=== PATIENT | male | born 1945 | race Caucasian/White ===

== ENCOUNTER 2022-02-24 16:27 | Emergency (ER) | payer OTHER ==
[2022-02-24 16:33] VITALS: BP 179/83; PULSE 89; TEMP 98.5; BMI 24.3
== END 2022-02-24 18:56 | disposition home or self-care (01) ==
LOC: JERFT 16:27
DX: S09.90XA Unspecified injury of head, initial encounter (principal); W01.198A Fall on same level from slipping, tripping and stumbling with subsequent striking against other object, initial encounter
CPT/HCPCS: 70450-TC; 72125-TC; 73590-TC-LT-FY; 99285-25

== ENCOUNTER 2022-06-09 11:11 | Inpatient (IN) | payer OTHER ==
[2022-06-09 11:22] VITALS: BMI 26.6
[2022-06-09] MEDS ORDERED: ACETAMINOPHEN INJECTION 100 ML IVPB ONE (12:14)
[2022-06-09 12:23] LABS: HEMATOCRIT 44.1 % (35.4-49); HEMOGLOBIN 15.1 GM/dL (11.7-16.9); MCH 31.5 pg (25.7-33.7); MCHC 34.3 g/dl (32.0-35.9); MEAN CELL VOLUME 91.9 fl (80-96); MEAN PLT VOLUME 8.6 fl (7.5-11.1); PLATELET COUNT 97 10^3/uL (134-434); RDW 13.6 % (11.9-15.9); WHITE BLOOD COUNT 5.6 K/mm3 (4.0-10.0)
[2022-06-09] MEDS ORDERED: SODIUM CHLORIDE 0.9% 500 ML INFUS.BAG IV ONE ×2 (12:24→13:06)
[2022-06-09] MEDS ORDERED: ACETAMINOPHEN 1000 MG/100 ML BAG IVPB ONE (12:26)
[2022-06-09 12:36] LABS: ACTIVATED PTT 35.7 SECONDS (25.2-36.5); INR 1.26 (0.83-1.09); PROTHROMBIN TIME (PATIENT) 14.5 SEC (9.7-13.0)
[2022-06-09 12:42] LABS: CHLORIDE 95 mmol/L (98-107); SODIUM 134 mmol/L (136-145)
[2022-06-09 12:44] LABS: CALCIUM 8.3 mg/dL (8.5-10.1)
[2022-06-09 12:45] LABS: ALBUMIN 3.5 g/dl (3.4-5.0); ANION GAP 14 MMOL/L (8-16); BLOOD UREA NITROGEN 24.5 mg/dL (7-18); CO2 24 mmol/L (21-32)
[2022-06-09 12:47] LABS: BILIRUBIN,DIRECT 0.3 mg/dL (0.0-0.2); GLUCOSE,RANDOM 126 mg/dL (74-106)
[2022-06-09 12:48] LABS: CREATININE 1.5 mg/dL (0.55-1.3); SGOT/AST 37 U/L (15-37)
[2022-06-09 12:49] LABS: LDH 187 U/L (87-246); TOT PROT 6.8 g/dl (6.4-8.2)
[2022-06-09 12:50] LABS: BILIRUBIN,TOTAL 0.7 mg/dL (0.2-1); SGPT/ALT 39 U/L (13-61)
[2022-06-09 12:51] LABS: ALK PHOS 66 U/L (45-117)
[2022-06-09 13:05] LABS: ANISOCYTOSIS 0; HELMET CELLS 0; HOWELL-JOLLY BODIES 0; MACROCYTOSIS 0; OVALOCYTE 0; ROULEAU 0; SICKELED CELLS 0; TARGET CELLS 0; TEAR DROP CELLS 0; TOXIC GRANULATION 0
[2022-06-09] MEDS ORDERED: DEXAMETHASONE SOD PHOSPHATE 20 MG/5 ML VIAL IVPB ONE (15:45)
[2022-06-09] MEDS ORDERED: DEXAMETHASONE SOD PHOSPHATE 10 MG/1 ML VIAL ONE (16:03)
[2022-06-09] MEDS ORDERED: ACETAMINOPHEN 325 MG TABLET (FP) PO PRN (16:37)
[2022-06-09] MEDS ORDERED: ENOXAPARIN NA (PORCINE) 40 MG/0.4 ML DISP.SYRIN SQ SCH (16:45)
[2022-06-09] MEDS ORDERED: REMDESIVIR 200 MG in SODIUM CHLORIDE 250 ML IVPB ONE (17:00)
[2022-06-09 18:12] LABS: EPI CELLS 19 /uL (0-25.1); HYALINE CASTS 5 /uL (0-3.1); PH,URINE 5.5 (5.0-8.0); URINE APPEARANCE CLEAR; URINE BACTERIA 9 /uL (0-1359); URINE BILIRUBIN NEGATIVE (NEGATIVE); URINE COLOR YELLOW; URINE GLUCOSE (UA) NEGATIVE (NEGATIVE); URINE KETONE 1+ (NEGATIVE); URINE LEUK ESTERASE NEGATIVE (NEGATIVE); URINE NITRITE NEGATIVE (NEGATIVE); URINE PROTEIN 1+ (NEGATIVE); URINE RBC 72 /uL (0-23.9); URINE UROBILINOGEN 0.2 mg/dL (0.2-1.0); URINE WBC 33 /uL (0-25.8)
[2022-06-09] MEDS ORDERED: CEFTRIAXONE 1 GM in DEXTROSE 5%-WATER - 50 ML IVPB SCH (18:15)
[2022-06-09] MEDS: INSULIN SLIDING SCALE (NOVOLOG) 1 VIAL SQ SCH (19:17)
[2022-06-09] MEDS ORDERED: CEFTRIAXONE 1 GM/50 ML BAG ONE (20:12)
[2022-06-09] MEDS: CEFTRIAXONE 1 GM in DEXTROSE 5%-WATER - 50 ML IVPB SCH (23:47)
[2022-06-09 23:54] LABS: PHOSPHOROUS 3.9 mg/dL (2.5-4.9)
[2022-06-10] MEDS: SODIUM CHLORIDE 1,000 ML IV SCH ×3 (01:24→12:25)
[2022-06-10] MEDS: INSULIN SLIDING SCALE (NOVOLOG) 1 VIAL SQ SCH ×3 (06:07→18:16)
[2022-06-10 09:15] LABS: HEMATOCRIT 41.4 % (35.4-49); HEMOGLOBIN 14.5 GM/dL (11.7-16.9); MCH 31.8 pg (25.7-33.7); MCHC 35.1 g/dl (32.0-35.9); MEAN CELL VOLUME 90.7 fl (80-96); MEAN PLT VOLUME 8.2 fl (7.5-11.1); PLATELET COUNT 98 10^3/uL (134-434); RBC 4.57 M/mm3 (4.00-5.60); RDW 13.6 % (11.9-15.9)
[2022-06-10 09:41] LABS: CALCIUM 7.7 mg/dL (8.5-10.1)
[2022-06-10 09:42] LABS: BLOOD UREA NITROGEN 21.5 mg/dL (7-18)
[2022-06-10 09:46] LABS: BILIRUBIN,TOTAL 0.6 mg/dL (0.2-1); TOT PROT 5.9 g/dl (6.4-8.2)
[2022-06-10] MEDS ORDERED: REMDESIVIR 200 MG in SODIUM CHLORIDE 250 ML IVPB ONE (10:27)
[2022-06-10 10:35] LABS: ALBUMIN 2.7 g/dl (3.4-5.0)
[2022-06-10] MEDS: DEXAMETHASONE SOD PHOSPHATE 10 MG/1 ML VIAL IVPUSH SCH (11:05)
[2022-06-10] MEDS: CEFTRIAXONE 1 GM in DEXTROSE 5%-WATER - 50 ML IVPB SCH (11:06)
[2022-06-10 12:58] LABS: ANISOCYTOSIS 2+; MACROCYTOSIS 0; OVALOCYTE 1+
[2022-06-10] MEDS: SODIUM CHLORIDE 0.45% 1,000 ML IV SCH (17:00)
[2022-06-10] MEDS: REMDESIVIR 100 MG in SODIUM CHLORIDE 250 ML IVPB SCH (18:16)
[2022-06-10] MEDS: HEPARIN NA (PORCINE) 5,000 UNITS/ML 1ML VIAL SQ SCH (22:19)
[2022-06-11] MEDS: INSULIN SLIDING SCALE (NOVOLOG) 1 VIAL SQ SCH ×3 (06:15→17:05)
[2022-06-11] MEDS: HEPARIN NA (PORCINE) 5,000 UNITS/ML 1ML VIAL SQ SCH ×3 (06:15→22:44)
[2022-06-11 08:54] LABS: HEMATOCRIT 40.3 % (35.4-49); HEMOGLOBIN 13.8 GM/dL (11.7-16.9); MCH 31.4 pg (25.7-33.7); MCHC 34.2 g/dl (32.0-35.9); MEAN CELL VOLUME 91.8 fl (80-96); MEAN PLT VOLUME 8.3 fl (7.5-11.1); PLATELET COUNT 106 10^3/uL (134-434); RBC 4.39 M/mm3 (4.00-5.60); RDW 13.8 % (11.9-15.9); WHITE BLOOD COUNT 7.3 K/mm3 (4.0-10.0)
[2022-06-11 09:17] LABS: CALCIUM 8.1 mg/dL (8.5-10.1)
[2022-06-11 09:18] LABS: ALBUMIN 2.7 g/dl (3.4-5.0); BLOOD UREA NITROGEN 21.8 mg/dL (7-18); MAGNESIUM 2.2 mg/dL (1.8-2.4)
[2022-06-11 09:21] LABS: CREATININE 0.9 mg/dL (0.55-1.3)
[2022-06-11 09:22] LABS: BILIRUBIN,TOTAL 0.7 mg/dL (0.2-1); TOT PROT 5.8 g/dl (6.4-8.2)
[2022-06-11] MEDS: CEFTRIAXONE 1 GM in DEXTROSE 5%-WATER - 50 ML IVPB SCH (11:08)
[2022-06-11] MEDS: DEXAMETHASONE SOD PHOSPHATE 10 MG/1 ML VIAL IVPUSH SCH (11:08)
[2022-06-11] MEDS: SODIUM CHLORIDE 0.45% 1,000 ML IV SCH ×2 (11:12→14:00)
[2022-06-11] MEDS: REMDESIVIR 100 MG in SODIUM CHLORIDE 250 ML IVPB SCH (17:05)
[2022-06-11] MEDS ORDERED: LABETALOL HCL 5 MG/1 ML (100MG/20 ML VIAL) IVPUSH ONE (22:02)
[2022-06-12] MEDS: HEPARIN NA (PORCINE) 5,000 UNITS/ML 1ML VIAL SQ SCH ×3 (06:06→21:01)
[2022-06-12] MEDS: INSULIN SLIDING SCALE (NOVOLOG) 1 VIAL SQ SCH ×3 (06:06→16:47)
[2022-06-12 08:09] LABS: CALCIUM 8.1 mg/dL (8.5-10.1)
[2022-06-12 08:10] LABS: BLOOD UREA NITROGEN 24.2 mg/dL (7-18)
[2022-06-12 08:13] LABS: CREATININE 0.8 mg/dL (0.55-1.3)
[2022-06-12] MEDS: LISINOPRIL 10 MG TABLET PO SCH (10:11)
[2022-06-12] MEDS: REMDESIVIR 100 MG in SODIUM CHLORIDE 250 ML IVPB SCH (17:07)
[2022-06-13] MEDS: HEPARIN NA (PORCINE) 5,000 UNITS/ML 1ML VIAL SQ SCH ×3 (06:08→21:09)
[2022-06-13] MEDS: INSULIN SLIDING SCALE (NOVOLOG) 1 VIAL SQ SCH ×3 (06:14→17:38)
[2022-06-13] MEDS: LISINOPRIL 10 MG TABLET PO SCH (10:34)
[2022-06-14] MEDS: HEPARIN NA (PORCINE) 5,000 UNITS/ML 1ML VIAL SQ SCH ×3 (05:44→21:41)
[2022-06-14] MEDS: INSULIN SLIDING SCALE (NOVOLOG) 1 VIAL SQ SCH ×3 (06:52→17:21)
[2022-06-14 10:10] LABS: HEMATOCRIT 42.4 % (35.4-49); HEMOGLOBIN 14.6 GM/dL (11.7-16.9); MCH 31.5 pg (25.7-33.7); MCHC 34.5 g/dl (32.0-35.9); MEAN CELL VOLUME 91.5 fl (80-96); MEAN PLT VOLUME 9.3 fl (7.5-11.1); PLATELET COUNT 160 10^3/uL (134-434); RBC 4.63 M/mm3 (4.00-5.60); RDW 13.7 % (11.9-15.9); WHITE BLOOD COUNT 7.6 K/mm3 (4.0-10.0)
[2022-06-14] MEDS: LISINOPRIL 10 MG TABLET PO SCH (10:24)
[2022-06-14 10:39] LABS: BLOOD UREA NITROGEN 20.4 mg/dL (7-18); CALCIUM 8.4 mg/dL (8.5-10.1)
[2022-06-14 10:40] LABS: ALBUMIN 2.8 g/dl (3.4-5.0)
[2022-06-14 10:43] LABS: CREATININE 0.7 mg/dL (0.55-1.3)
[2022-06-14 10:45] LABS: BILIRUBIN,TOTAL 1.4 mg/dL (0.2-1); TOT PROT 5.8 g/dl (6.4-8.2)
[2022-06-15] MEDS: HEPARIN NA (PORCINE) 5,000 UNITS/ML 1ML VIAL SQ SCH ×2 (06:19→14:16)
[2022-06-15] MEDS: INSULIN SLIDING SCALE (NOVOLOG) 1 VIAL SQ SCH ×3 (06:19→17:01)
[2022-06-15 06:32] VITALS: RESP 18
[2022-06-15] MEDS: LISINOPRIL 10 MG TABLET PO SCH (10:07)
[2022-06-15 14:52] LABS: BILIRUBIN,DIRECT 0.3 mg/dL (0.0-0.2)
[2022-06-15 14:55] LABS: BILIRUBIN,TOTAL 0.7 mg/dL (0.2-1)
[2022-06-15 20:13] VITALS: BP 130/60; PULSE 54; TEMP 98.5
== END 2022-06-15 20:30 | disposition home or self-care (01) | DRG 177 ==
LOC: JER 11:11 → JERBED 15:38 → J4S 23:18
PROVIDERS: ADMIT Internal Medicine; ATTEND Internal Medicine
PROC: XW033E5 Introduction of Remdesivir Anti-infective into Peripheral Vein, Percutaneous Approach, New Technology Group 5 (ICD-10-PCS; principal; 2022-06-09)
PROC: 3E0333Z Introduction of Anti-inflammatory into Peripheral Vein, Percutaneous Approach (ICD-10-PCS; 2022-06-09)
DX: U07.1 COVID-19 (principal); G93.41 Metabolic encephalopathy; J12.82 Pneumonia due to coronavirus disease 2019; J96.01 Acute respiratory failure with hypoxia; N17.9 Acute kidney failure, unspecified; N39.0 Urinary tract infection, site not specified; I10 Essential (primary) hypertension; E78.5 Hyperlipidemia, unspecified; E86.0 Dehydration; R00.1 Bradycardia, unspecified; E11.9 Type 2 diabetes mellitus without complications; D69.6 Thrombocytopenia, unspecified; Z86.73 Personal history of transient ischemic attack (TIA), and cerebral infarction without residual deficits
CPT/HCPCS: 36415; 70450-TC; 71045-TC-FY; 80048; 80053; 81003; 82247; 82248; 82550; 82553; 82570; 82728; 82962; 83605; 83615; 83735; 84100; 84300; 84484; 85025; 85027; 85379; 85610; 85730; 86140; 87040; 87086; 93005; 93010; 94761; 97116-GP; 99285-25; C9399; C9803-CS; J1100; J1644; U0003; U0005

== ENCOUNTER 2022-09-27 05:35 | Day surgery (SDC) | payer OTHER ==
[2022-09-26 12:14] VITALS: BMI 23.6
[2022-09-27] MEDS ORDERED: PROPOFOL 20 ML ONE (12:07)
[2022-09-27] MEDS ORDERED: BUPIVACAINE HCL/PF 0.25% (2.5MG/ML) 10 ML VIAL ONE (12:14)
[2022-09-27] MEDS ORDERED: FENTANYL CITRATE/PF 50 MCG/ML VIAL ONE ×3 (12:42→16:20)
[2022-09-27] MEDS ORDERED: ceFAZolin SODIUM 1 GM VIAL IVPB ONE (12:45)
[2022-09-27] MEDS ORDERED: ceFAZolin SODIUM 1 GM VIAL ONE (12:59)
[2022-09-27] MEDS ORDERED: ONDANSETRON 4 MG/2 ML VIAL ONE (13:07)
[2022-09-27] MEDS ORDERED: DEXAMETHASONE SOD PHOSPHATE 4 MG/1 ML VIAL ONE (13:07)
[2022-09-27] MEDS ORDERED: ROCURONIUM BROMIDE 50 MG/5 ML SYRINGE ONE (13:18)
[2022-09-27] MEDS ORDERED: BUPIVACAINE HCL/PF 0.25% (2.5MG/ML) 10 ML VIAL IJ ONE (13:18)
[2022-09-27] MEDS ORDERED: GLYCOPYRROLATE 0.2 MG/1 ML VIAL ONE (13:22)
[2022-09-27] MEDS ORDERED: ACETAMINOPHEN INJECTION 100 ML IVPB ONE (15:13)
[2022-09-27] MEDS ORDERED: LABETALOL HCL 5 MG/1 ML (100MG/20 ML VIAL) IVPUSH ONE ×2 (15:30→16:21)
[2022-09-27] MEDS ORDERED: ONDANSETRON 4 MG/2 ML VIAL IVPUSH PRN (15:32)
[2022-09-27] MEDS ORDERED: LACTATED RINGERS SOLUTION 1,000 ML IV SCH (15:45)
[2022-09-27 15:56] VITALS: TEMP 97.5
[2022-09-27 19:34] VITALS: BP 170/76; PULSE 72; RESP 20
== END 2022-09-27 19:45 | disposition home or self-care (01) ==
LOC: JASU-SURG 05:35
PROVIDERS: ATTEND Surgery
PROC: 0YU64JZ Supplement Left Inguinal Region with Synthetic Substitute, Percutaneous Endoscopic Approach (ICD-10-PCS; principal; 2022-09-27 13:00)
DX: K40.90 Unilateral inguinal hernia, without obstruction or gangrene, not specified as recurrent (principal)
CPT/HCPCS: 49650; S2900; 82962; 86850; 86900; 86901; 94760; C1781

== ENCOUNTER 2025-05-14 23:37 | Inpatient (IN) | payer OTHER ==
[2025-05-15 00:06] VITALS: BMI 24.3
[2025-05-15 00:47] LABS: MCHC 32.6 g/dl (32.3-36.5); MEAN CELL VOLUME 93.7 fl (79.0-92.2); MEAN PLT VOLUME 9.9 fl (9.4-12.4); RDW 13.2 % (12.2-16.6)
[2025-05-15 00:51] LABS: EPI CELLS 4 /uL (0-25.1); HYALINE CASTS 0 /uL (0-3.1); URINE APPEARANCE CLEAR; URINE BACTERIA 3 /uL (0-1359); URINE BILIRUBIN NEGATIVE (NEGATIVE); URINE COLOR YELLOW; URINE GLUCOSE (UA) 1+ (NEGATIVE); URINE KETONE 1+ (NEGATIVE); URINE LEUK ESTERASE NEGATIVE (NEGATIVE); URINE NITRITE NEGATIVE (NEGATIVE); URINE PROTEIN TRACE (NEGATIVE); URINE RBC 565 /uL (0-23.9); URINE UROBILINOGEN 1.0 mg/dL (0.2-1.0); URINE WBC 8 /uL (0-25.8)
[2025-05-15 00:56] LABS: INR 1.06 (0.83-1.09); PROTHROMBIN TIME (PATIENT) 11.7 SEC (9.7-13.0)
[2025-05-15 00:59] LABS: ACTIVATED PTT 28.0 SECONDS (25.2-36.5)
[2025-05-15 01:16] LABS: CO2 25.0 mmol/L (21-32); GLUCOSE,RANDOM 183.0 mg/dL (74-106)
[2025-05-15 01:19] LABS: CREATININE 1.0 mg/dL (0.55-1.3); SGOT/AST 16.0 U/L (15-37); SGPT/ALT 16.0 U/L (13-61)
[2025-05-15 01:21] LABS: TOT PROT 6.6 g/dl (6.4-8.2)
[2025-05-15 01:22] LABS: ALK PHOS 104.0 U/L (45-117)
[2025-05-15] MEDS ORDERED: SENNOSIDES 8.6MG TABLET (FP) PO ONE (05:00)
[2025-05-15] MEDS: SENNOSIDES 8.6MG TABLET (FP) PO ONE (05:05)
[2025-05-15] MEDS: SODIUM PHOSPHATE/NA BIPHOS 133 ML ENEMA RC ONE (05:05)
[2025-05-15] MEDS: CEFTRIAXONE 1 GM in DEXTROSE 5%-WATER - 50 ML IVPB SCH (10:54)
[2025-05-15] MEDS: LISINOPRIL 20 MG TABLET PO SCH (10:55)
[2025-05-15 11:44] LABS: CO2 27.0 mmol/L (21-32); GLUCOSE,RANDOM 178.0 mg/dL (74-106)
[2025-05-15 11:47] LABS: CREATININE 0.8 mg/dL (0.55-1.3)
[2025-05-15] MEDS: AZITHROMYCIN IVPB 500 MG/250 ML BAG IVPB SCH (12:54)
[2025-05-15] MEDS: HEPARIN NA (PORCINE) 5,000 UNITS/ML 1ML VIAL SQ SCH (14:54)
[2025-05-15] MEDS: INSULIN ASPART SLIDING SCALE (NOVOLOG) 1 VIAL SQ SCH (18:29)
[2025-05-15] MEDS: DOCUSATE SODIUM 100 MG CAPSULE (FP) PO SCH (21:57)
[2025-05-15] MEDS: ATORVASTATIN CA 10 MG TABLET (FP) PO SCH (21:57)
[2025-05-16 08:45] LABS: ABSOLUTE IMMATURE GRANULOCYTES 0.05 x10^3/uL (0.0-0.031); BASOPHILS # 0.04 x10^3/uL (0.01-0.08); EOSINOPHIL % 2.9 % (0.8-7.0); EOSINOPHILS # 0.20 x10^3/uL (0.04-0.54); MCHC 32.3 g/dl (32.3-36.5); MEAN CELL VOLUME 93.9 fl (79.0-92.2); MEAN PLT VOLUME 10.6 fl (9.4-12.4); MONOCYTE # 0.66 x10^3/uL (0.30-0.82); MONOCYTE % 9.4 % (5.3-12.2); RDW 13.0 % (12.2-16.6)
[2025-05-16 09:26] LABS: IRON SERUM 58.0 ug/dL (50-175)
[2025-05-16 09:43] LABS: CO2 27.0 mmol/L (21-32); GLUCOSE,RANDOM 144.0 mg/dL (74-106)
[2025-05-16 09:46] LABS: CREATININE 0.8 mg/dL (0.55-1.3)
[2025-05-16] MEDS: ACETAMINOPHEN 325 MG TABLET (FP) PO PRN (11:03)
[2025-05-16] MEDS: DOCUSATE NA 100 MG/10 ML UNIT-DOSE CUPS PO ONE (21:58)
[2025-05-17 12:03] LABS: ABSOLUTE IMMATURE GRANULOCYTES 0.03 x10^3/uL (0.0-0.031); BASOPHILS # 0.03 x10^3/uL (0.01-0.08); EOSINOPHIL % 2.0 % (0.8-7.0); EOSINOPHILS # 0.13 x10^3/uL (0.04-0.54); IMMATURE PLATELET FRACTION # 14.60 x10^3/uL; MCHC 32.3 g/dl (32.3-36.5); MEAN CELL VOLUME 94.0 fl (79.0-92.2); MEAN PLT VOLUME 11.9 fl (9.4-12.4); MONOCYTE # 0.60 x10^3/uL (0.30-0.82); MONOCYTE % 9.3 % (5.3-12.2); RDW 12.7 % (12.2-16.6)
[2025-05-17 13:00] LABS: CO2 29.0 mmol/L (21-32); GLUCOSE,RANDOM 151.0 mg/dL (74-106)
[2025-05-17 13:02] LABS: CREATININE 0.9 mg/dL (0.55-1.3)
[2025-05-17 13:03] LABS: SGOT/AST 19.0 U/L (15-37); SGPT/ALT 24.0 U/L (13-61)
[2025-05-17 13:04] LABS: TOT PROT 6.4 g/dl (6.4-8.2)
[2025-05-17 13:06] LABS: ALK PHOS 115.0 U/L (45-117)
[2025-05-17 16:53] LABS: URINE COLOR YELLOW
[2025-05-17 16:54] LABS: URINE APPEARANCE CLEAR; URINE BILIRUBIN NEGATIVE (NEGATIVE); URINE GLUCOSE (UA) 100 (NEGATIVE); URINE KETONE 40 mg/dl (NEGATIVE); URINE NITRITE NEGATIVE (NEGATIVE); URINE PROTEIN 30 (NEGATIVE); URINE UROBILINOGEN 1.0 mg/dL (0.2-1.0)
[2025-05-17 16:55] LABS: URINE LEUK ESTERASE NEGATIVE (NEGATIVE)
[2025-05-18 10:25] LABS: MCHC 32.3 g/dl (32.3-36.5); MEAN CELL VOLUME 93.9 fl (79.0-92.2); MEAN PLT VOLUME 10.3 fl (9.4-12.4); RDW 12.8 % (12.2-16.6)
[2025-05-18 11:05] LABS: CO2 30.0 mmol/L (21-32); GLUCOSE,RANDOM 154.0 mg/dL (74-106)
[2025-05-18 11:07] LABS: SGPT/ALT 32.0 U/L (13-61)
[2025-05-18 11:08] LABS: CREATININE 0.9 mg/dL (0.55-1.3); SGOT/AST 20.0 U/L (15-37)
[2025-05-18 11:09] LABS: TOT PROT 6.3 g/dl (6.4-8.2)
[2025-05-18 11:10] LABS: ALK PHOS 122.0 U/L (45-117)
[2025-05-19 04:23] VITALS: RESP 18
[2025-05-19 14:14] VITALS: BP 150/71; PULSE 56; TEMP 97.9
== END 2025-05-19 15:26 | DRG 193 ==
LOC: JER 23:37 → JERBED 05-15 02:21 → J6S 05-15 05:50
PROVIDERS: ADMIT Internal Medicine; ATTEND Internal Medicine
DX: J18.9 Pneumonia, unspecified organism (principal); G93.41 Metabolic encephalopathy; F03.918 Unspecified dementia, unspecified severity, with other behavioral disturbance; K59.00 Constipation, unspecified; R62.7 Adult failure to thrive; I10 Essential (primary) hypertension; E78.5 Hyperlipidemia, unspecified; E11.9 Type 2 diabetes mellitus without complications; R29.6 Repeated falls; R31.0 Gross hematuria
CPT/HCPCS: 36415; 70450-TC; 71045-TC-FY; 71250-TC; 74018-TC-FY; 74178-TC; 80048; 80053; 81003; 82550; 82553; 82607; 82728; 82746; 82962; 83036; 83540; 83550; 83735; 84100; 84484; 85025; 85027; 85610; 85730; 86780; 87040; 87086; 87637-QW; 87899; 93005; 93010; 97116-GP; 97162-GP; 99285-25; Q9967

== ENCOUNTER 2025-06-15 19:32 | Inpatient (IN) | payer OTHER ==
[2025-06-15] MEDS ORDERED: MIDAZOLAM IN 0.9 % SOD.CHLORID 1 MG/1 ML PLAST..BAG ONE (20:00)
[2025-06-15] MEDS: MIDAZOLAM HCL 2 MG/2 ML SINGLE DOSE VIAL IVPUSH ONE (20:00)
[2025-06-15] MEDS ORDERED: NOREPINEPHRINE BITARTRATE 4 MG/4 ML ML IV ONE ×2 (20:14→20:19)
[2025-06-15] MEDS: NOREPINEPHRINE BITARTRATE 4,000 MCG in DEXTROSE 5%-WATER - 496 ML IV SCH (20:26)
[2025-06-15] MEDS: MIDAZOLAM IN 0.9 % SOD.CHLORID 100 MG/100 ML PLAST..BAG IVPB SCH (20:30)
[2025-06-15 21:05] LABS: BG HCT 41.0 % (35.4-49); VENOUS BASE EXCESS -10.8 mmol/L (-2-2); VENOUS O2 SATURATION 79.7 % (70-80); VENOUS PCO2 34.0 mmHg (38-52); VENOUS PH 7.266 (7.310-7.410)
[2025-06-15 21:06] LABS: MCHC 30.9 g/dl (32.3-36.5); MEAN CELL VOLUME 97.9 fl (79.0-92.2); MEAN PLT VOLUME 11.7 fl (9.4-12.4); RDW 14.8 % (12.2-16.6)
[2025-06-15 21:15] LABS: INR 1.61 (0.83-1.09); PROTHROMBIN TIME (PATIENT) 17.7 SEC (9.7-13.0)
[2025-06-15 21:17] LABS: ACTIVATED PTT 27.0 SECONDS (25.2-36.5)
[2025-06-15] MEDS ORDERED: PIPERACILLIN/TAZOB 3.375 GM 3.375 GM/50 ML BAG IVPB ONE (21:21)
[2025-06-15 21:28] LABS: CO2 18.0 mmol/L (21-32); GLUCOSE,RANDOM 334.0 mg/dL (74-106)
[2025-06-15 21:31] LABS: CREATININE 3.3 mg/dL (0.55-1.3); SGOT/AST 23.0 U/L (15-37); SGPT/ALT 19.0 U/L (13-61)
[2025-06-15 21:32] LABS: TOT PROT 6.5 g/dl (6.4-8.2)
[2025-06-15] MEDS: PIPERACILLIN/TAZOB 3.375 GM 3.375 GM in DEXTROSE 5%-WATER - 50 ML IVPB ONE (21:32)
[2025-06-15 21:34] LABS: ALK PHOS 100.0 U/L (45-117)
[2025-06-15 21:37] LABS: LACTIC ACID 5.3 mmol/L (0.4-2.0)
[2025-06-15 22:02] LABS: EPI CELLS >36 /uL (0-25.1); HYALINE CASTS 43 /uL (0-3.1); URINE APPEARANCE TURBID; URINE BACTERIA 7 /uL (0-1359); URINE BILIRUBIN NEGATIVE (NEGATIVE); URINE COLOR DK YELLOW; URINE GLUCOSE (UA) 1+ (NEGATIVE); URINE KETONE NEGATIVE (NEGATIVE); URINE LEUK ESTERASE NEGATIVE (NEGATIVE); URINE NITRITE NEGATIVE (NEGATIVE); URINE PROTEIN 1+ (NEGATIVE); URINE UROBILINOGEN 0.2 mg/dL (0.2-1.0)
[2025-06-15 22:41] LABS: URINE RBC 28.5 /uL (0-23.9); URINE WBC 57.5 /uL (0-25.8); YEAST NONE SEEN (NEGATIVE)
[2025-06-15 22:54] LABS: LACTIC ACID 4.9 mmol/L (0.4-2.0)
[2025-06-15] MEDS ORDERED: ACETAMINOPHEN 1000 MG/100 ML BAG IVPB PRN (23:18)
[2025-06-16] MEDS: PROPOFOL 1,000,000 MCG/100 ML VIAL IVPB SCH (00:02)
[2025-06-16] MEDS: FENTANYL NS IVPB 500 MCG/100 ML BAG IVPB SCH (00:03)
[2025-06-16] MEDS: HYDROCORTISONE SOD SUCCINATE 100 MG/2 ML VIAL IVPB SCH (00:27)
[2025-06-16] MEDS: LACTATED RINGERS SOLUTION 1000 ML INFUS.BAG IV ONE (00:33)
[2025-06-16] MEDS ORDERED: INSULIN REGULAR HUMAN 100 UNITS/ML *VIAL ONE (00:38)
[2025-06-16] MEDS: INSULIN REGULAR HUMAN 100 UNITS/ML *VIAL IVPUSH ONE (00:40)
[2025-06-16] MEDS: VANCOMYCIN/WATER FOR INJ (PEG) 750 MG/150 ML BAG IVPB SCH (01:53)
[2025-06-16] MEDS: INSULIN REGULAR 100 UNITS in SODIUM CHLORIDE 99 ML IVPB SCH (02:33)
[2025-06-16] MEDS: PIPERACILLIN/TAZOB 2.25 GM 2.25 GM in DEXTROSE 5%-WATER - 50 ML IVPB SCH ×2 (03:23→17:40)
[2025-06-16] MEDS: HEPARIN NA (PORCINE) 5,000 UNITS/ML 1ML VIAL SQ SCH (05:56)
[2025-06-16 06:08] LABS: ARTERIAL BLD GAS O2 SATURATION 95.8 % (95-98); ARTERIAL BLOOD GAS BASE EXCESS -7.4 mmol/L (-2-2); ARTERIAL BLOOD GAS PCO2 38.00 mmHg (35-45); ARTERIAL BLOOD GAS PO2 86.9 mmHg (80-100); BG HCT 38.0 % (35.4-49)
[2025-06-16 06:10] LABS: VENT MODE A/C; VENT RATE 15
[2025-06-16 06:53] LABS: MCHC 31.1 g/dl (32.3-36.5); MEAN CELL VOLUME 98.0 fl (79.0-92.2); MEAN PLT VOLUME 11.8 fl (9.4-12.4); RDW 14.8 % (12.2-16.6)
[2025-06-16 07:03] LABS: CO2 20.0 mmol/L (21-32); GLUCOSE,RANDOM 368.0 mg/dL (74-106); SGOT/AST 32.0 U/L (15-37); SGPT/ALT 21.0 U/L (13-61); TOT PROT 5.4 g/dl (6.4-8.2)
[2025-06-16] MEDS: NOREPINEPHRINE BITARTRATE/D5W 8 MG/250 ML BAG IVPB SCH (07:05)
[2025-06-16 07:06] LABS: ALK PHOS 95.0 U/L (45-117); CREATININE 3.2 mg/dL (0.55-1.3)
[2025-06-16 07:12] LABS: LACTIC ACID 3.6 mmol/L (0.4-2.0)
[2025-06-16] MEDS: ALBUTEROL SO4 2.5/IPRATROPIUM 0.5 INH SOL 3 ML VIAL.NEB. NEB SCH (08:03)
[2025-06-16] MEDS: FAMOTIDINE 20 MG/2.5 ML ORAL LIQUID NGT SCH (09:50)
[2025-06-16] MEDS: POLYETHYLENE GLYCOL (HEALTHYLAX) 3350 17 GM PACKET NGT SCH (09:50)
[2025-06-16] MEDS: MUPIROCIN 2% TOPICAL OINTMENT FOR DECOLONIZATION NS SCH (09:57)
[2025-06-16] MEDS ORDERED: ONDANSETRON 4 MG/2 ML VIAL IVPUSH PRN (10:00)
[2025-06-16 14:22] VITALS: BMI 17.5
[2025-06-16] MEDS: SODIUM CHLORIDE 0.45% 1,000 ML IV SCH (16:26)
[2025-06-16] MEDS: INSULIN ASPART SLIDING SCALE (NOVOLOG) 1 VIAL SQ SCH ×2 (17:22→21:45)
[2025-06-16 18:21] LABS: LACTIC ACID 2.4 mmol/L (0.4-2.0)
[2025-06-16] MEDS: VANCOMYCIN/WATER FOR INJ (PEG) 1,000 MG/200 ML BAG IVPB ONE (21:20)
[2025-06-16] MEDS: CHLORHEXIDINE GLUCONATE 4% CLEANSER FOR DECOLONIZATION TP SCH (21:21)
[2025-06-16] MEDS: INSULIN GLARGINE (LANTUS) 100 UNITS/ML UNITS SQ SCH (21:21)
[2025-06-16] MEDS: ATORVASTATIN CA 10 MG TABLET (FP) NGT SCH (21:21)
[2025-06-16] MEDS ORDERED: VANCOMYCIN 750 MG in DEXTROSE 5%-WATER - 150 ML IVPB SCH (22:00)
[2025-06-16] MEDS: VANCOMYCIN 1,000 MG in DEXTROSE 5%-WATER - 250 ML IVPB ONE (23:19)
[2025-06-17] MEDS: MAGNESIUM SULFATE IN WATER 2 GM/50 ML IVPB IVPB ONE (05:01)
[2025-06-17 06:35] LABS: ARTERIAL BLD GAS O2 SATURATION 96.9 % (95-98); ARTERIAL BLOOD GAS BASE EXCESS -6.3 mmol/L (-2-2); ARTERIAL BLOOD GAS PCO2 41.20 mmHg (35-45); ARTERIAL BLOOD GAS PO2 98.5 mmHg (80-100); BG HCT 53.0 % (35.4-49); O2 CONTENT 2.47 % vol
[2025-06-17 06:46] LABS: MCHC 31.4 g/dl (32.3-36.5); MEAN CELL VOLUME 96.5 fl (79.0-92.2); MEAN PLT VOLUME 11.3 fl (9.4-12.4); RDW 14.8 % (12.2-16.6)
[2025-06-17 08:37] LABS: MCHC 31.3 g/dl (32.3-36.5); MEAN CELL VOLUME 96.0 fl (79.0-92.2); MEAN PLT VOLUME 11.4 fl (9.4-12.4); RDW 14.7 % (12.2-16.6)
[2025-06-17 09:33] LABS: GLUCOSE,RANDOM 326.0 mg/dL (74-106); TOT PROT 5.0 g/dl (6.4-8.2)
[2025-06-17 09:34] LABS: CO2 18.0 mmol/L (21-32)
[2025-06-17 09:36] LABS: ALK PHOS 101.0 U/L (40-150)
[2025-06-17 09:39] LABS: CREATININE 2.14 mg/dL (0.55-1.3); SGOT/AST 30.0 U/L (5-34); SGPT/ALT 11.0 U/L (0-55)
[2025-06-17] MEDS ORDERED: HEPARIN NA (PORCINE) 5,000 UNITS/ML 1ML VIAL IVPUSH PRN (12:17)
[2025-06-17] MEDS: HEPARIN INFUSION - 25,000 UNITS/500 ML INFUS.BAG IVPB SCH (13:57)
[2025-06-17] MEDS: HEPARIN NA (PORCINE) 5,000 UNITS/ML 1ML VIAL IVPUSH ONE (13:58)
[2025-06-18 06:41] LABS: MCHC 31.8 g/dl (32.3-36.5); MEAN CELL VOLUME 94.8 fl (79.0-92.2); MEAN PLT VOLUME 11.3 fl (9.4-12.4); RDW 14.7 % (12.2-16.6)
[2025-06-18 06:48] LABS: INR 1.01 (0.83-1.09); PROTHROMBIN TIME (PATIENT) 11.1 SEC (9.7-13.0)
[2025-06-18 06:50] LABS: ARTERIAL BLD GAS O2 SATURATION 98.5 % (95-98); ARTERIAL BLOOD GAS BASE EXCESS -5.0 mmol/L (-2-2); ARTERIAL BLOOD GAS PCO2 35.00 mmHg (35-45); ARTERIAL BLOOD GAS PO2 130.3 mmHg (80-100); BG HCT 45.0 % (35.4-49); O2 CONTENT 2.14 % vol
[2025-06-18 06:51] LABS: ACTIVATED PTT 27.8 SECONDS (25.2-36.5)
[2025-06-18 07:17] LABS: ALLENS TEST POSITIVE; VENT MODE A/C
[2025-06-18 07:18] LABS: VENT RATE 16
[2025-06-18 07:35] LABS: GLUCOSE,RANDOM 324.0 mg/dL (74-106)
[2025-06-18 07:36] LABS: CO2 22.0 mmol/L (21-32); TOT PROT 4.4 g/dl (6.4-8.2)
[2025-06-18 07:41] LABS: CREATININE 1.46 mg/dL (0.55-1.3); SGOT/AST 28.0 U/L (5-34)
[2025-06-18 08:18] LABS: ALK PHOS 133.0 U/L (40-150); SGPT/ALT 12.0 U/L (0-55)
[2025-06-18] MEDS: VANCOMYCIN/WATER FOR INJ (PEG) 1,000 MG/200 ML BAG IVPB SCH (10:22)
[2025-06-18] MEDS: HEPARIN NA (PORCINE) 5,000 UNITS/ML 1ML VIAL IVPUSH ONE (11:41)
[2025-06-18] MEDS: HEPARIN INFUSION - 25,000 UNITS/500 ML INFUS.BAG IVPB SCH ×2 (11:48→12:04)
[2025-06-18] MEDS: NAPH,MB-DB/K PH,MBDB POWDER PACKET PO ONE (13:21)
[2025-06-18] MEDS: METOPROLOL TARTRATE 5 MG/5 ML VIAL IVPUSH ONE (14:23)
[2025-06-18] MEDS ORDERED: DIGOXIN 0.5 MG/2 ML AMPUL ONE (15:43)
[2025-06-18] MEDS: DIGOXIN 0.5 MG/2 ML AMPUL IVPUSH SCH ×2 (15:49→16:22)
[2025-06-18] MEDS ORDERED: DIGOXIN 0.5 MG/2 ML AMPUL IVPUSH SCH (16:45)
[2025-06-18] MEDS: DIGOXIN 0.5 MG/2 ML AMPUL IVPUSH ONE ×2 (16:47→18:06)
[2025-06-18] MEDS: PIPERACILLIN/TAZOB 3.375 GM 3.375 GM in DEXTROSE 5%-WATER - 50 ML IVPB SCH (18:06)
[2025-06-18] MEDS: INSULIN GLARGINE (LANTUS) 100 UNITS/ML UNITS SQ SCH (22:24)
[2025-06-19 06:43] LABS: MCHC 32.1 g/dl (32.3-36.5); MEAN CELL VOLUME 95.0 fl (79.0-92.2); MEAN PLT VOLUME 11.5 fl (9.4-12.4); RDW 14.6 % (12.2-16.6)
[2025-06-19 07:38] LABS: GLUCOSE,RANDOM 311.0 mg/dL (74-106)
[2025-06-19 07:39] LABS: TOT PROT 4.6 g/dl (6.4-8.2)
[2025-06-19 07:40] LABS: CO2 24.0 mmol/L (21-32)
[2025-06-19 07:44] LABS: SGOT/AST 25.0 U/L (5-34); SGPT/ALT 16.0 U/L (0-55)
[2025-06-19 07:45] LABS: CREATININE 1.11 mg/dL (0.55-1.3)
[2025-06-19 08:04] LABS: ALK PHOS 178.0 U/L (40-150)
[2025-06-19] MEDS ORDERED: DIGOXIN 0.5 MG/2 ML AMPUL IVPUSH SCH (10:00)
[2025-06-19] MEDS: LACTATED RINGERS SOLUTION 1000 ML INFUS.BAG IV ONE ×2 (11:06→15:19)
[2025-06-19] MEDS ORDERED: DIGOXIN 0.5 MG/2 ML AMPUL IVPUSH ONE (15:46)
[2025-06-19] MEDS: NAPH,MB-DB/K PH,MBDB POWDER PACKET PO ONE (16:46)
[2025-06-19] MEDS: HYDROCORTISONE SOD SUCCINATE 100 MG/2 ML VIAL IVPB SCH (23:41)
[2025-06-19] MEDS: CALCIUM GLUCONATE 10% - 1,000 MG/10 ML VIAL IVPB ONE (23:41)
[2025-06-20 07:07] LABS: KAPPA/LAMBDA RATIO, UR 5.44 (1.83-14.26)
[2025-06-20 07:07] LABS: MCHC 31.5 g/dl (32.3-36.5); MEAN CELL VOLUME 95.6 fl (79.0-92.2); MEAN PLT VOLUME 11.2 fl (9.4-12.4); RDW 14.6 % (12.2-16.6)
[2025-06-20 07:25] LABS: GLUCOSE,RANDOM 255.0 mg/dL (74-106); TOT PROT 3.9 g/dl (6.4-8.2)
[2025-06-20 07:26] LABS: CO2 26.0 mmol/L (21-32)
[2025-06-20 07:30] LABS: SGOT/AST 23.0 U/L (5-34); SGPT/ALT 21.0 U/L (0-55)
[2025-06-20 07:31] LABS: CREATININE 0.97 mg/dL (0.55-1.3)
[2025-06-20 09:41] LABS: ALK PHOS 150.0 U/L (40-150)
[2025-06-20] MEDS: LACTATED RINGERS SOLUTION 1,000 ML/1,000 ML INFUS.BAG IV SCH (11:10)
[2025-06-20] MEDS: ACETYLCYSTEINE 20% 200MG/ML 4 ML VIAL *FOR ORAL / INH USE ONLY NEB SCH (11:46)
[2025-06-20] MEDS: ALBUTEROL SO4 0.083% IH SOL 2.5 MG/3 ML VIAL.NEB. NEB SCH (11:47)
[2025-06-20] MEDS: POVIDONE-IODINE 10% SOLN 118 ML BOTTLE TP ONE (17:22)
[2025-06-20] MEDS: INSULIN GLARGINE (LANTUS) 100 UNITS/ML UNITS SQ SCH (21:24)
[2025-06-21 06:57] LABS: INR 1.07 (0.83-1.09); PROTHROMBIN TIME (PATIENT) 11.7 SEC (9.7-13.0)
[2025-06-21 06:59] LABS: MCHC 31.9 g/dl (32.3-36.5); MEAN CELL VOLUME 95.5 fl (79.0-92.2); MEAN PLT VOLUME 11.3 fl (9.4-12.4); RDW 14.6 % (12.2-16.6)
[2025-06-21 07:00] LABS: ACTIVATED PTT 65.6 SECONDS (25.2-36.5)
[2025-06-21 08:11] LABS: GLUCOSE,RANDOM 193.0 mg/dL (74-106); TOT PROT 4.0 g/dl (6.4-8.2)
[2025-06-21 08:12] LABS: CO2 26.0 mmol/L (21-32)
[2025-06-21 08:14] LABS: ALK PHOS 157.0 U/L (40-150)
[2025-06-21 08:16] LABS: SGOT/AST 28.0 U/L (5-34); SGPT/ALT 30.0 U/L (0-55)
[2025-06-21 08:17] LABS: CREATININE 0.78 mg/dL (0.55-1.3)
[2025-06-21] MEDS: LACTATED RINGERS SOLUTION 1,000 ML/1,000 ML INFUS.BAG IV SCH (12:00)
[2025-06-21] MEDS ORDERED: ACETAMINOPHEN INJECTION 100 ML ONE (22:00)
[2025-06-21] MEDS: ACETAMINOPHEN 1000 MG/100 ML BAG IVPB PRN (22:25)
[2025-06-22 07:11] LABS: MCHC 32.2 g/dl (32.3-36.5); MEAN CELL VOLUME 95.4 fl (79.0-92.2); MEAN PLT VOLUME 11.4 fl (9.4-12.4); RDW 14.6 % (12.6-16.6)
[2025-06-22 07:34] LABS: GLUCOSE,RANDOM 95 mg/dL (74-106); TOT PROT 3.8 g/dl (6.4-8.2)
[2025-06-22 07:35] LABS: CO2 29 mmol/L (21-32)
[2025-06-22 07:39] LABS: SGOT/AST 41 U/L (5-34); SGPT/ALT 44 U/L (0-55)
[2025-06-22 07:40] LABS: CREATININE 0.81 mg/dL (0.55-1.3)
[2025-06-22 07:46] LABS: ALK PHOS 144 U/L (40-150)
[2025-06-22] MEDS: MAGNESIUM SULFATE IN WATER 2 GM/50 ML IVPB IVPB ONE (09:45)
[2025-06-22] MEDS: KCL 10 MEQ IVPB 10 MEQ/100 ML INFUS.BAG IVPB SCH (09:45)
[2025-06-22] MEDS: HYDROCORTISONE SOD SUCCINATE 100 MG/2 ML VIAL IVPUSH SCH (10:04)
[2025-06-22] MEDS: FUROSEMIDE 40 MG/4 ML INJECTABLE VIAL IVPUSH ONE (10:13)
[2025-06-22] MEDS: POTASSIUM PHOSPHATE 30 MM in SODIUM CHLORIDE 250 ML IVPB ONE (10:35)
[2025-06-23 07:07] LABS: MEAN CELL VOLUME 95.9 fl (79.0-92.2)
[2025-06-23 07:09] LABS: IMMATURE PLATELET FRACTION # 8.20 x10^3/uL; MCHC 32.1 g/dl (32.3-36.5); MEAN PLT VOLUME 11.4 fl (9.4-12.4); RDW 14.9 % (12.6-16.6)
[2025-06-23 07:11] LABS: ABSOLUTE IMMATURE GRANULOCYTES 1.45 x10^3/uL (0.0-0.031); BASOPHILS # 0.06 x10^3/uL (0.01-0.08); EOSINOPHIL % 0.3 % (0.8-7.0); EOSINOPHILS # 0.06 x10^3/uL (0.04-0.54); MCHC 31.8 g/dl (32.3-36.5); MEAN CELL VOLUME 95.2 fl (79.0-92.2); MEAN PLT VOLUME 11.4 fl (9.4-12.4); MONOCYTE # 0.42 x10^3/uL (0.30-0.82); MONOCYTE % 2.3 % (5.3-12.2); RDW 14.8 % (12.6-16.6)
[2025-06-23] MEDS: HEPARIN NA (PORCINE) 5,000 UNITS/ML 1ML VIAL IVPUSH PRN (07:21)
[2025-06-23 07:27] LABS: GLUCOSE,RANDOM 82 mg/dL (74-106); TOT PROT 3.8 g/dl (6.4-8.2)
[2025-06-23 07:29] LABS: CO2 29 mmol/L (21-32)
[2025-06-23 07:33] LABS: CREATININE 0.71 mg/dL (0.55-1.3); SGOT/AST 29 U/L (5-34); SGPT/ALT 41 U/L (0-55)
[2025-06-23 07:34] LABS: ALK PHOS 134 U/L (40-150)
[2025-06-23] MEDS: DEXMEDETOMIDINE PREMIX 400 MCG/100 ML BAG IVPB SCH (10:59)
[2025-06-23] MEDS: HYDROCORTISONE SOD SUCCINATE 100 MG/2 ML VIAL IVPUSH SCH (11:00)
[2025-06-23] MEDS: CALCIUM CARBONATE SUSPENSION - 1250 MG/5 ML ML NGT SCH (11:00)
[2025-06-23] MEDS: FUROSEMIDE 40 MG/4 ML INJECTABLE VIAL IVPUSH ONE (11:00)
[2025-06-23] MEDS: ENOXAPARIN NA (PORCINE) 60 MG/0.6 ML DISP.SYRIN SQ SCH (11:00)
[2025-06-23] MEDS ORDERED: DEXTROSE 50%-WATER 25 GM/50 ML DISP.SYRIN ONE (11:20)
[2025-06-23] MEDS: POTASSIUM CHLORIDE ORAL LIQUID 20 MEQ/15 ML PO ONE (13:54)
[2025-06-23] MEDS: MAGNESIUM OXIDE 400 MG TABLET (FP) NGT ONE (13:54)
[2025-06-23] MEDS: MAGNESIUM SULFATE IN WATER 2 GM/50 ML IVPB IVPB ONE (17:52)
[2025-06-23] MEDS: INSULIN GLARGINE (LANTUS) 100 UNITS/ML UNITS SQ SCH (21:16)
[2025-06-24 07:03] LABS: ABSOLUTE IMMATURE GRANULOCYTES 0.75 x10^3/uL (0.0-0.031); BASOPHILS # 0.01 x10^3/uL (0.01-0.08); EOSINOPHIL % 0.2 % (0.8-7.0); EOSINOPHILS # 0.03 x10^3/uL (0.04-0.54); MCHC 32.4 g/dl (32.3-36.5); MEAN CELL VOLUME 95.8 fl (79.0-92.2); MEAN PLT VOLUME 11.2 fl (9.4-12.4); MONOCYTE # 0.48 x10^3/uL (0.30-0.82); MONOCYTE % 3.1 % (5.3-12.2); RDW 14.9 % (12.6-16.6)
[2025-06-24 07:05] LABS: GLUCOSE,RANDOM 68 mg/dL (74-106)
[2025-06-24 07:06] LABS: TOT PROT 3.9 g/dl (6.4-8.2)
[2025-06-24 07:07] LABS: CO2 29 mmol/L (21-32)
[2025-06-24 07:11] LABS: SGOT/AST 64 U/L (5-34); SGPT/ALT 74 U/L (0-55)
[2025-06-24 07:40] LABS: ALK PHOS 122 U/L (40-150); CREATININE 0.55 mg/dL (0.55-1.3)
[2025-06-24] MEDS: COLLAGENASE CLOSTRIDIUM HIST. 30 GRAMS TUBE TP SCH (08:48)
[2025-06-24] MEDS: NAPH,MB-DB/K PH,MBDB POWDER PACKET PO ONE (08:50)
[2025-06-24] MEDS: HYDROCORTISONE SOD SUCCINATE 100 MG/2 ML VIAL IVPUSH SCH (09:32)
[2025-06-24] MEDS: CALCIUM CARBONATE SUSPENSION - 1250 MG/5 ML ML NGT SCH (09:32)
[2025-06-24] MEDS ORDERED: INSULIN GLARGINE (LANTUS) 100 UNITS/ML UNITS SQ SCH (10:36)
[2025-06-24] MEDS ORDERED: DEXTROSE 50%-WATER 25 GM/50 ML DISP.SYRIN ONE (10:36)
[2025-06-24] MEDS: DEXTROSE 50%-WATER - 25 GM/50 ML VIAL IVPUSH PRN (10:42)
[2025-06-24] MEDS ORDERED: DEXTROSE 25 % IN WATER 2.5 GM/10 ML SYRINGE IVPB PRN (10:44)
[2025-06-24] MEDS: INSULIN GLARGINE (LANTUS) 100 UNITS/ML UNITS SQ SCH (21:17)
[2025-06-25 07:03] LABS: MCHC 31.2 g/dl (32.3-36.5); MEAN CELL VOLUME 97.2 fl (79.0-92.2); MEAN PLT VOLUME 11.5 fl (9.4-12.4); RDW 14.8 % (12.6-16.6)
[2025-06-25 07:49] LABS: GLUCOSE,RANDOM 137.0 mg/dL (74-106)
[2025-06-25 07:50] LABS: TOT PROT 4.1 g/dl (6.4-8.2)
[2025-06-25 07:51] LABS: CO2 30.0 mmol/L (21-32)
[2025-06-25 07:55] LABS: CREATININE 0.64 mg/dL (0.55-1.3); SGOT/AST 111.0 U/L (5-34); SGPT/ALT 137.0 U/L (0-55)
[2025-06-25 08:11] LABS: ALK PHOS 162.0 U/L (40-150)
[2025-06-25] MEDS: FUROSEMIDE 40 MG/4 ML INJECTABLE VIAL IVPUSH SCH (09:23)
[2025-06-25] MEDS: SCOPOLAMINE HYDROBROMIDE 1 PATCH PATCH.TD72 TD SCH (12:15)
[2025-06-26 07:39] LABS: ABSOLUTE IMMATURE GRANULOCYTES 0.17 x10^3/uL (0.0-0.031); BASOPHILS # 0.02 x10^3/uL (0.01-0.08); EOSINOPHIL % 0.2 % (0.8-7.0); EOSINOPHILS # 0.02 x10^3/uL (0.04-0.54); MCHC 30.6 g/dl (32.3-36.5); MEAN CELL VOLUME 99.2 fl (79.0-92.2); MEAN PLT VOLUME 10.8 fl (9.4-12.4); MONOCYTE # 0.64 x10^3/uL (0.30-0.82); MONOCYTE % 5.2 % (5.3-12.2); RDW 15.1 % (12.6-16.6)
[2025-06-26 07:57] LABS: GLUCOSE,RANDOM 105.0 mg/dL (74-106)
[2025-06-26 07:58] LABS: TOT PROT 4.2 g/dl (6.4-8.2)
[2025-06-26 08:00] LABS: ALK PHOS 169.0 U/L (40-150)
[2025-06-26 08:03] LABS: CREATININE 0.68 mg/dL (0.55-1.3); SGOT/AST 82.0 U/L (5-34); SGPT/ALT 147.0 U/L (0-55)
[2025-06-26 08:06] LABS: CO2 31.0 mmol/L (21-32)
[2025-06-26] MEDS: ENOXAPARIN NA (PORCINE) 80 MG/0.8 ML DISP.SYRIN SQ SCH (10:00)
[2025-06-26] MEDS: MAGNESIUM 2GM/50ML STERILE WATER IVPB IVPB ONE (10:01)
[2025-06-26] MEDS ORDERED: morphine CARPU-JECT 2 MG/1 ML DISP.SYRIN IVPUSH PRN (10:47)
[2025-06-26] MEDS: GLYCOPYRROLATE 1 MG TABLET GT SCH (11:44)
[2025-06-26] MEDS: NAPH,MB-DB/K PH,MBDB POWDER PACKET PO ONE (11:44)
[2025-06-26] MEDS ORDERED: LORazepam 2 MG/ML SDV VIAL IVPUSH PRN (17:21)
[2025-06-27] MEDS: HYDROCORTISONE SOD SUCCINATE 100 MG/2 ML VIAL IVPUSH SCH (06:46)
[2025-06-27] MEDS: LACTATED RINGERS SOLUTION 1000 ML INFUS.BAG IV ONE ×2 (07:30)
[2025-06-27 09:25] LABS: MCHC 31.2 g/dl (32.3-36.5); MEAN CELL VOLUME 100.0 fl (79.0-92.2); MEAN PLT VOLUME 10.9 fl (9.4-12.4); RDW 15.1 % (12.6-16.6)
[2025-06-27] MEDS: MIDODRINE HCL 5 MG TABLET PO SCH (09:53)
[2025-06-27 09:58] LABS: GLUCOSE,RANDOM 271 mg/dL (74-106); TOT PROT 3.4 g/dl (6.4-8.2)
[2025-06-27 10:00] LABS: CO2 27 mmol/L (21-32)
[2025-06-27 10:04] LABS: CREATININE 0.79 mg/dL (0.55-1.3); SGOT/AST 88 U/L (5-34); SGPT/ALT 140 U/L (0-55)
[2025-06-27 10:09] LABS: MCHC 31.7 g/dl (32.3-36.5); MEAN CELL VOLUME 99.3 fl (79.0-92.2); MEAN PLT VOLUME 10.7 fl (9.4-12.4); RDW 15.1 % (12.6-16.6)
[2025-06-27 10:11] LABS: ALK PHOS 116 U/L (40-150)
[2025-06-27] MEDS: MORPHINE SULFATE/0.9% NACL/PF 100 MG/100 ML BAG IVPB SCH (11:10)
[2025-06-27] MEDS ORDERED: LORazepam 2 MG/ML SDV VIAL IVPUSH SCH (15:15)
[2025-06-27] MEDS: LORazepam 2 MG/ML SDV VIAL IVPUSH SCH (18:22)
[2025-06-28] MEDS: MIDODRINE HCL 5 MG TABLET PO SCH (08:08)
[2025-06-28] MEDS: MORPHINE SULFATE/0.9% NACL/PF 100 MG/100 ML BAG IVPB SCH (11:01)
[2025-06-29 15:26] VITALS: RESP 16
[2025-06-29] MEDS ORDERED: RAPID SEQUENCE INTUBATION KIT NR ONE (20:54)
[2025-06-29] MEDS ORDERED: EPINEPHrine 1:10,000 (P-F SYR) 1 MG/10 ML DISP.SYRIN ONE (21:10)
[2025-06-30 05:53] VITALS: TEMP 97.7
[2025-06-30] MEDS: SCOPOLAMINE HYDROBROMIDE 1 PATCH PATCH.TD72 TD SCH (12:32)
[2025-06-30 16:00] VITALS: BP 93/47; PULSE 93
== END 2025-06-30 21:00 | disposition expired | DRG 870 ==
LOC: JER 19:32 → JERBED 21:48 → JICU 23:35
PROVIDERS: ADMIT Internal Medicine Pulmonary Disease; ATTEND Internal Medicine Pulmonary Disease
PROC: 5A1955Z Respiratory Ventilation, Greater than 96 Consecutive Hours (ICD-10-PCS; principal; 2025-06-15)
PROC: 0BH17EZ Insertion of Endotracheal Airway into Trachea, Via Natural or Artificial Opening (ICD-10-PCS; 2025-06-15)
PROC: 05HN33Z Insertion of Infusion Device into Left Internal Jugular Vein, Percutaneous Approach (ICD-10-PCS; 2025-06-15)
PROC: 03HY32Z Insertion of Monitoring Device into Upper Artery, Percutaneous Approach (ICD-10-PCS; 2025-06-16)
PROC: 4A133B1 Monitoring of Arterial Pressure, Peripheral, Percutaneous Approach (ICD-10-PCS; 2025-06-16)
PROC: 4A133J1 Monitoring of Arterial Pulse, Peripheral, Percutaneous Approach (ICD-10-PCS; 2025-06-16)
PROC: 05HC33Z Insertion of Infusion Device into Left Basilic Vein, Percutaneous Approach (ICD-10-PCS; 2025-06-25)
PROC: B54NZZA Ultrasonography of Left Upper Extremity Veins, Guidance (ICD-10-PCS; 2025-06-25)
DX: A41.9 Sepsis, unspecified organism (principal); G93.41 Metabolic encephalopathy; J96.01 Acute respiratory failure with hypoxia; R65.21 Severe sepsis with septic shock; I21.A1 Myocardial infarction type 2; J15.212 Pneumonia due to Methicillin resistant Staphylococcus aureus; N17.9 Acute kidney failure, unspecified; E87.20 Acidosis, unspecified; E87.1 Hypo-osmolality and hyponatremia; D68.9 Coagulation defect, unspecified; I10 Essential (primary) hypertension; E78.5 Hyperlipidemia, unspecified; E11.9 Type 2 diabetes mellitus without complications; E86.0 Dehydration; R62.7 Adult failure to thrive; L89.159 Pressure ulcer of sacral region, unspecified stage; I44.0 Atrioventricular block, first degree; E87.6 Hypokalemia; E83.51 Hypocalcemia; I48.0 Paroxysmal atrial fibrillation; F01.50 Vascular dementia, unspecified severity, without behavioral disturbance, psychotic disturbance, mood disturbance, and anxiety
CPT/HCPCS: 36415; 36430; 36600; 70450-TC; 71045-TC-FY; 71250-TC; 76775-TC; 80053; 81003; 82140; 82272; 82308; 82340; 82436; 82550; 82607; 82746; 82803; 82962; 83010; 83036; 83605; 83735; 83883; 83986; 84100; 84105; 84133; 84300; 84484; 84540; 84560; 85025; 85027; 85384; 85610; 85730; 86140; 86850; 86900; 86901; 86922; 87040; 87070; 87081; 87086; 87205; 87481; 87637-QW; 87899; 93005; 93010; 93306-TC; 94002; 94640; 99291; G0480; J1644; J3490; P9058